=== PATIENT | female | born 1945 | race Caucasian/White ===

== ENCOUNTER 2016-12-06 09:15 | Emergency (ER) | payer MEDICARE ==
[~2016-12-06] VITALS: Ht 165.1 cm; Wt 102.4 kg
[2016-12-06 09:20] VITALS: BP 152/88; PULSE 93; RESP 16; TEMP 98.3; O2SAT 97
[2016-12-06] MEDS ORDERED: RANI300T PO (09:58)
[2016-12-06] MEDS ORDERED: SIMV20TA PO (09:58)
[2016-12-06] MEDS ORDERED: LEVO50TA4 PO (09:58)
[2016-12-06] MEDS ORDERED: CITA20TA4 PO (09:58)
[2016-12-06] MEDS ORDERED: OMEP20TA PO (09:58)
[2016-12-06] MEDS ORDERED: PERC5TAB12 PO (09:59)
--- NOTE | 2016-12-06 10:00 | PD ---
HPI Chief Complaint: Pain: Acute or Chronic Time Seen by Provider: 09:41 Travel History International Travel<30 days: No Contact w/Intl Traveler<30days: No Traveled to known affect area: No History of Present Illness HPI This 71-year-old female is complaining of pain in her left knee. She is visiting here from [facility]. Prior to coming down she developed some pain in her left knee. She went to a orthopedist and received x-rays and was told she had arthritis. She was given an intra-articular injection of triamcinolone which seemed to help. She has been here for a week and she has been fairly active. Yesterday she was in [place] getting off and on [facility]. She's been using a brace and a cane which seems to help. Been taking Motrin and Aleve but is having a lot of pain in these medications don't seem to be helping. His been no injury recently [facility] Past Medical History Arthritis: Yes Anxiety: Yes Depression: Yes High Cholesterol: Yes Diminished Hearing: No Tetanus Vaccination: < 5 Years Influenza Vaccination: Yes Past Surgical History Eye Surgery: Yes (BILATERAL CATERACT) Tonsillectomy: Yes Other Surgery: Yes (FACIAL PLASTICS FROM [facility]) Social History Alcohol Use: Yes (SOCIAL) Tobacco Use: No Substance Use: No Allergies-Medications (Allergen,Severity, Reaction): Coded Allergies: Adhesives (Verified Allergy, Mild, 12/06/16) Tetracycline (Verified Adverse Reaction, Unknown, VOMITING, 12/06/16) Review of Systems General / Constitutional: No: Fever, Chills Eyes: No: Diploplia, Blurred Vision Cardiovascular: No: Chest Pain or Discomfort Gastrointestinal: No: Vomiting, Diarrhea Musculoskeletal: Positive: Myalgias, Pain Endocrine: No: Heat Intolerance Hematologic/Lymphatic: No: Easy Bruising Physical Exam Narrative GENERAL: Well-developed female SKIN: Focused skin assessment warm/dry. HEAD: Atraumatic. Normocephalic. EYES: Pupils equal and round. No scleral icterus. No injection or drainage. ENT: No nasal bleeding or discharge. Mucous membranes pink and moist. NECK: Trachea midline. No JVD. MUSCULOSKELETAL: No obvious deformities. No clubbing. No cyanosis. No edema. Examination of the left knee shows no deformity. The skin is intact. It is not erythematous. There is some mild swelling of the knee compared to the right. There is no gross instability. There is pain with flexion and extension NEUROLOGICAL: Awake and alert. No obvious cranial nerve deficits. Motor grossly within normal limits. Normal speech. PSYCHIATRIC: Appropriate mood and affect; insight and judgment normal. Data Data Last Documented VS Vital Signs Date Time Temp Pulse Resp B/P Pulse Ox O2 Delivery O2 Flow Rate FiO2 12/06/16 09:20 98.3 93 16 152/88 97 MDM Medical Decision Making Medical Screen Exam Complete: Yes Emergency Medical Condition: Yes Medical Record Reviewed: Yes Differential Diagnosis Differential includes arthritis of the knee, exacerbation of knee pain, internal derangement left knee Narrative Course Patient has an orthopedist at home that is evaluating her for this knee and it told her she might need a knee splint. She is to continue using the brace and cane. I have encouraged her to try to limit her activity. I will prescribe Percocet as the anti-inflammatory medications are not sufficient for pain Diagnosis Primary Impression: Arthritis of left knee Scripts Oxycodone-Acetaminophen (Percocet)5-325 mg Tab1-2 Tab PO Q4H PRN (PAIN) #30 TAB Ref 0 Prov:Daniel Dias MD 12/06/16 Disposition: 01 DISCHARGE HOME Condition: Stable Daniel Dias MD Dec 06, 2016 09:59
== END 2016-12-06 10:18 | disposition home or self-care (01) ==
LOC: PHED 09:15
DX: M17.12 Unilateral primary osteoarthritis, left knee (principal); E78.00 Pure hypercholesterolemia, unspecified; Z87.39 Personal history of other diseases of the musculoskeletal system and connective tissue; Z86.59 Personal history of other mental and behavioral disorders
CPT/HCPCS: 99283